=== PATIENT | female | born 1980 | race Caucasian/White ===

== ENCOUNTER → 2020-07-19 | Outpatient (CLI) | payer OTHER ==
[2016-10-12 18:55] VITALS: BP 106/70
[~2020-07-19] MED LIST: CYCL-331 PO; CYCL5TAB PO; HYDR-1179 PO; LORA2TAB89 PO
--- NOTE | 2020-07-19 19:20 | RAD ---
EXAM: CHEST 2 VIEWS. HISTORY: Chest pain, spontaneous pneumothorax. COMPARISON: None. FINDINGS: Frontal and lateral views of the chest are obtained. There is a lung suture line laterally along the right upper lobe. There are no confluent infiltrates. There is no pneumothorax or pleural effusion. The heart is not enlarged. IMPRESSION: 1. No confluent infiltrates. Electronically signed by: Bre Pan MD (07/19/2020 7:18 PM) [facility]
== END ==
LOC: RAD 18:08
PROVIDERS: ATTEND Emergency Medicine
DX: R07.89 Other chest pain (principal)
CPT/HCPCS: 71046

== ENCOUNTER → 2021-05-30 | Outpatient (CLI) | payer OTHER ==
[2016-10-12 18:55] VITALS: BP 106/70
[~2021-05-30] MED LIST changes: -CYCL-331 PO; +CYCL10TA19 PO
--- NOTE | 2021-05-30 14:28 | RAD ---
Digital bilateral screening mammogram with tomography dated 05/30/2021. INDICATION: 40 years of age asymptomatic female patient presents for screening mammography. . TECHNIQUE: Full field craniocaudal and mediolateral oblique images of both breasts were obtained usi ng digital technique with tomosynthesis and also analyzed with computer-aided detection software. . COMPARISON: None baseline. BREAST COMPOSITION: Category D: The breasts are extremely dense. This may lower the sensitivity of m ammography. FINDINGS: There is a somewhat vague circumscribed nodular focus at the lateral aspect of the left breast seen b est on the tomographic images. This may be located inferiorly on the MLO view, however the breasts ar e extremely dense and evaluation is difficult. No suspicious mass or architectural distortion on the right. No suspicious clustered calcifications. IMPRESSION: Possible partially circumscribed nodule at the lateral aspect of the left breast. Recomme nd compression views and ultrasound for better evaluation. RECOMMENDATION: Annual screening mammography is recommended, unless clinically indicated sooner based on symptoms or change in physical exam. BIRADS 0: INCOMPLETE - NEED ADDITIONAL IMAGING EVALUATION AND/OR PRIOR MAMMOGRAMS FOR COMPARISON. This study was interpreted with the benefit of Computerized Aided Detection (CAD). Recommend compression views and ultrasound for better evaluation. Patient information is entered into the reminder system with a target due date for the next screening mammogram. Mammography is the most sensitive method for finding small breast cancers, but it does not detect the m all and is not a substitute for careful clinical examination. A negative mammogram does not negate a clinically suspicious finding and should not result in delay in biopsying a clinically suspicious a bnormality. "Our facility is accredited by the [employer] Mammography Program." Electronically signed by: Otoniel Dutta MD (05/30/2021 2:26 PM) [id number]
== END ==
LOC: MAMMO 13:04
PROVIDERS: ATTEND Hospitalist
DX: Z12.31 Encounter for screening mammogram for malignant neoplasm of breast (principal)
CPT/HCPCS: 77063; 77067